=== PATIENT | female | born 1965 | race Caucasian/White ===

== ENCOUNTER → 2016-08-19 | Outpatient (CLI) | payer BC ==
[~2016-08-19] MED LIST: CEPH500C PO; CETI10TA84 PO; CONJ0.3T3 PO; GUAI1TAB69 PO; ONDA4TAB10 SL; OXYC1TAB3 PO; TRIA1SPR4 NAE
== END | disposition home or self-care (01) ==
LOC: C.PAPS 14:09
PROVIDERS: ATTEND Obstetrics & Gynecology
DX: Z01.419 Encounter for gynecological examination (general) (routine) without abnormal findings (principal)

== ENCOUNTER 2017-01-15 13:01 | Emergency (ER) | payer BC, OTHER ==
[~2017-01-15] VITALS: Ht 170.2 cm; Wt 68.3 kg
[2017-01-15 13:10] VITALS: TEMP 36.9; Ht 170.2 cm; Wt 68.3 kg
[2017-01-15] MEDS ORDERED: CONJ0.3T3 PO (13:24)
[2017-01-15] MEDS ORDERED: TRIA1SPR4 NAE (13:24)
[2017-01-15] MEDS ORDERED: GUAI1TAB69 PO (13:24)
[2017-01-15] MEDS ORDERED: CETI10TA84 PO (13:24)
[2017-01-15] MEDS ORDERED: ACETAMINOPHEN 500 MG TAB PO STA (13:31)
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
[2017-01-15] MEDS ORDERED: DIPHTHERIA/TETANUS/PERTUSSIS 0.5 ML SYR/VIAL IM. ONE (13:45)
[2017-01-15] MEDS ORDERED: XYLOCAINE 1%/SOD BICARB 20 ML VIAL INFIL ONE (13:45)
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
[2017-01-15] MEDS ORDERED: BUPIVACAINE 0.5 % 5 MG/1 ML MPF 30ML VIAL INFIL ONE (14:15)
[2017-01-15] MEDS ORDERED: MoRPHine SULFATE 10 MG/ML CARP/VIAL IM STA (14:27)
[2017-01-15] MEDS ORDERED: ONDANSETRON 4MG OD TAB PO STA (14:27)
[2017-01-15] MEDS ORDERED: ONDANSETRON HOME PACK 4MG OD TAB PO ONE (15:45)
[2017-01-15] MEDS ORDERED: OXYCODONE IR HOME PACK PO ONE (15:45)
[2017-01-15] MEDS ORDERED: CEFTRIAXONE SOD 350MG/ML 1 GM VIAL IM ONE (15:45)
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
[2017-01-15] MEDS ORDERED: ONDA4TAB10 SL (15:57)
[2017-01-15] MEDS ORDERED: CEPH500C PO (15:57)
[2017-01-15] MEDS ORDERED: OXYC1TAB3 PO (15:57)
[2017-01-15 16:42] VITALS: BP 124/84; PULSE 68; O2SAT 98
== END 2017-01-15 16:45 | disposition home or self-care (01) ==
LOC: C.EDB 13:04 → C.EDC 16:45
DX: S81.022A Laceration with foreign body, left knee, initial encounter (principal); S60.212A Contusion of left wrist, initial encounter; S70.211A Abrasion, right hip, initial encounter; V28.4XXA Motorcycle driver injured in noncollision transport accident in traffic accident, initial encounter; Y92.488 Other paved roadways as the place of occurrence of the external cause; F17.210 Nicotine dependence, cigarettes, uncomplicated

== ENCOUNTER → 2017-08-30 | Outpatient (CLI) | payer BC, OTHER ==
[~2017-08-30] MED LIST changes: -CEPH500C PO; -ONDA4TAB10 SL; -OXYC1TAB3 PO
== END | disposition home or self-care (01) ==
LOC: C.PAPS 16:04
PROVIDERS: ATTEND Obstetrics & Gynecology
DX: Z01.419 Encounter for gynecological examination (general) (routine) without abnormal findings (principal)